=== PATIENT | female | born 2000 | race Caucasian/White ===

== ENCOUNTER → 2020-02-18 | Outpatient (CLI) | payer OTHER ==
--- NOTE | 2020-02-18 20:07 | XCELERA REPORT ---
[address] [address] Transthoracic Echocardiogram Report Name: DARLINE NASH Age: 19 yrs Gender: Female : 2000 Patient Status: Outpatient Patient Location: Study Date: 02/18/2020 02:09 PM History: Family h/o Congenital heart disease Height: 65 in Weight: 147 lb BSA: 1.7 m2 Procedure: A complete two-dimensional transthoracic echocardiogram was performed (2D, M-mode, spectral and color flow Doppler). The study was technically adequate with some images being suboptimal in quality. Study Quality: Technically adequate. Reason For Study: FAMILY HX OF HEART DISEASE Ordering Physician: LIBERTAD GALLEGOS Performed By: Senait Becerril Interpretation Summary Study quality is sub optimal to assess septal defects. Left ventricular systolic function is normal. The Ejection Fraction estimate is 55-60% The right ventricle is normal in size and function. There is a trace amount of mitral regurgitation There is no aortic valve stenosis There is a trace amount of tricuspid regurgitation Doppler findings do not suggest pulmonary hypertension. There is no pericardial effusion. MMode/2D Measurements & Calculations RVDd: 2.1 cm LVIDd: 4.4 cm FS: 32.5 % Ao root diam: 2.4 cm IVSd: 0.70 cm LVIDs: 2.9 cm EDV(Teich): 86.3 ml Ao root area: 4.6 cm2 LVPWd: 0.84 cm ESV(Teich): 33.6 ml EF(Teich): 61.1 % Doppler Measurements & Calculations MV E max bhavana: MV dec slope: Ao V2 max: LV V1 max P.6 cm/sec 712.5 cm/sec2 150.1 cm/sec 7.5 mmHg MV A max bhavana: MV dec time: 0.13 secAo max PG: LV V1 max: 67.0 cm/sec 9.0 mmHg 137.2 cm/sec MV E/A: 1.4 PA V2 max: PI end-d bhavana: 119.5 cm/sec 89.4 cm/sec PA max P.7 mmHg Left Ventricle The left ventricle is normal in size. There is normal left ventricular wall thickness. Left ventricular systolic function is normal. The Ejection Fraction estimate is 55-60%. Doppler measurements suggest normal left ventricular diastolic function. No regional wall motion abnormalities noted. Right Ventricle The right ventricle is normal in size and function. Atria The right atrium is normal. The left atrial size is normal. The interatrial septum is intact with no evidence for an atrial septal defect. There is no Doppler evidence for an interatrial shunt. Mitral Valve The mitral valve is grossly normal. There is a trace amount of mitral regurgitation. Aortic Valve The aortic valve opens well. The aortic valve is trileaflet. The aortic valve is normal in structure and function. There is no aortic valve stenosis. No aortic regurgitation is present. Tricuspid Valve The tricuspid valve is normal in structure and function. There is a trace amount of tricuspid regurgitation. Tricuspid regurgitation jet envelope not well defined to measure RV systolic pressure accurately. Doppler findings do not suggest pulmonary hypertension. Pulmonic Valve The pulmonic valve is not well seen, but is grossly normal. There is a mild amount of pulmonic regurgitation. Great Vessels The aortic root is normal size. The inferior vena cava appeared small and collapsed with respiration (RAP 0-5 mmHg). Effusions There is no pericardial effusion. : LIBERTAD GALLEGOS Anil
== END ==
LOC: SP 14:50
PROVIDERS: ATTEND Internal Medicine
DX: I08.3 Combined rheumatic disorders of mitral, aortic and tricuspid valves (principal); Z82.49 Family history of ischemic heart disease and other diseases of the circulatory system
CPT/HCPCS: 93306

== ENCOUNTER 2020-03-12 10:54 | Inpatient (IN) | payer OTHER ==
[2020-03-12 12:35] LABS: APPEARANCE,URINE SLIGHTLY-CLOUDY; BILIRUBIN,URINE NEGATIVE (NEGATIVE); COLOR,URINE YELLOW; GLUCOSE, URINE NEGATIVE (NEGATIVE); KETONES,URINE NEGATIVE (NEGATIVE); LEUKOCYTE ESTERASE,URINE SMALL (NEGATIVE); NITRITE,URINE NEGATIVE (NEGATIVE); PROTEIN,URINE NEGATIVE (NEGATIVE); URINE SPECIFIC GRAVITY 1.009; UROBILINOGEN,URINE NEGATIVE mg/dL (<2.0)
[2020-03-12 12:54] LABS: URINE AMPHETAMINES SCREEN NEGATIVE; URINE BARBITURATES SCREEN NEGATIVE; URINE BENZODIAZEPINES SCREEN NEGATIVE; URINE COCAINE SCREEN NEGATIVE; URINE MARIJUANA (THC) SCREEN NEGATIVE; URINE METHADONE SCREEN NEGATIVE; URINE PHENCYCLIDINE SCREEN NEGATIVE
[2020-03-12] MEDS ORDERED: OXYTOCIN/0.9 % SODIUM CHLORIDE 30 UNIT/500 ML RTUINJ IV PRN (14:53)
[2020-03-12] MEDS: RINGERS SOLUTION,LACTATED 1,000 ML IV PRN (15:00)
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
[2020-03-12] MEDS ORDERED: LIDOCAINE 1% INJ-PF (10 MG/ML) 30 ML SDV ONE (15:29)
[2020-03-12] MEDS ORDERED: OXYTOCIN 10 UNIT/ML VIAL ONE (15:29)
[2020-03-12] MEDS ORDERED: MISOPROSTOL 0.2 MG TABLET ONE (15:29)
[2020-03-12] MEDS ORDERED: OXYTOCIN/0.9 % SODIUM CHLORIDE 30 UNIT/500 ML RTUINJ ONE (15:30)
[2020-03-12 15:55] LABS: ABSOLUTE BASOPHILS # (AUTO) 0.1 10^3/uL (0.0-0.2); ABSOLUTE EOSINOPHILS # (AUTO) 0.1 10^3/uL (0.0-0.6); ABSOLUTE LYMPHOCYTES (AUTO) 1.5 10^3/uL (0.5-4.7); ABSOLUTE MONOCYTES (AUTO) 0.5 10^3/uL (0.1-1.4); ABSOLUTE NEUT (AUTO) 9.4 10^3/uL (1.7-8.2); BASOPHILS % (AUTO) 0.7 % (0-2); EOSINOPHILS % (AUTO) 0.7 % (0-6); HEMATOCRIT 37.3 % (36.0-47.0); HEMOGLOBIN 12.6 g/dL (12.0-15.5); LYMPHOCYTES % (AUTO) 12.7 % (13-45); MEAN CORPUSCULAR HEMOGLOBIN 29.1 pg (27.0-33.4); MEAN CORPUSCULAR HGB CONC 33.7 g/dL (32.0-36.0); MEAN CORPUSCULAR VOLUME 86 fl (80-97); MONOCYTES % (AUTO) 3.9 % (3-13); PLATELET COUNT 187 10^3/uL (150-450); RED BLOOD COUNT 4.32 10^6/uL (3.72-5.28); TOTAL CELLS COUNTED % (AUTO) 100 %; WHITE BLOOD COUNT 11.5 10^3/uL (4.0-10.5)
[2020-03-12] MEDS ORDERED: ONDANSETRON HCL INJ/PF 4 MG/2 ML SDV ONE (20:48)
[2020-03-12] MEDS ORDERED: ONDANSETRON HCL INJ/PF 4 MG/2 ML SDV IV ONE (20:50)
[2020-03-12] MEDS ORDERED: DINOPROSTONE 10 MG VAGINAL INSERT.SR PV ONE (20:51)
[2020-03-12] MEDS ORDERED: DINOPROSTONE 10 MG VAGINAL INSERT.SR ONE (21:39)
[2020-03-12] MEDS ORDERED: ZOLPIDEM TARTRATE 5 MG TABLET ONE (21:39)
[2020-03-12] MEDS ORDERED: ZOLPIDEM TARTRATE 5 MG TABLET PO ONE (21:43)
[2020-03-13] MEDS ORDERED: DINOPROSTONE 10 MG VAGINAL INSERT.SR ONE (03:06)
[2020-03-13] MEDS ORDERED: FENTANYL CITRATE INJ/PF 100 MCG/2 ML AMPUL ONE (05:08)
[2020-03-13] MEDS ORDERED: FENTANYL CITRATE INJ/PF 100 MCG/2 ML AMPUL IV ONE (05:14)
[2020-03-13] MEDS ORDERED: ONDANSETRON HCL INJ/PF 4 MG/2 ML SDV ONE (07:33)
[2020-03-13] MEDS ORDERED: ONDANSETRON HCL INJ/PF 4 MG/2 ML SDV IV ONE (07:35)
[2020-03-13] MEDS: RINGERS SOLUTION,LACTATED 1,000 ML IV PRN (10:41)
[2020-03-13] MEDS ORDERED: PROMETHAZINE HCL INJ 25 MG/1 ML VIAL IV ONE (10:56)
[2020-03-13] MEDS ORDERED: NALBUPHINE HCL INJ 10 MG/1 ML AMPULE INJ ONE (10:59)
[2020-03-13] MEDS ORDERED: NALBUPHINE HCL INJ 10 MG/1 ML AMPULE ONE (11:18)
[2020-03-13] MEDS ORDERED: PROMETHAZINE HCL INJ 25 MG/1 ML VIAL ONE (11:18)
--- NOTE | 2020-03-13 13:00 | L&D Progress Notes ---
PROGRESS NOTES Datetime Report Generated by CPN: 03/13/2020 13:00 PROGRESS NOTE Impression: Normal Progression of Labor Procedures: Sterile Vag Exam Plan: Continue Present Management; Anticipate Vaginal Delivery Vital Signs : Reviewed; Within Normal Limits Comment: IOL, s/p Cervidil, Pitocin was never started. Pt very uncomfortable w/ contractions, attempting natural labor. VE 8/90/0 w/ BBOW. Position changes encouraged. Anticipate , will AROM prior to delivery. Attending MD is Dr Beal VAGINAL EXAM Dilatation: 3 Effacement: 60 Station: -2 LAST VAGINAL EXAM-NURSING Nursing Exam Dilitation: 8.0 Nursing Exam Effacement: 90 Nursing Exam Station: 0 Nursing Exam Contractions: Nancy monitor applied during this time. MEMBRANES Membranes: Intact FETUS A FHR - Baseline: 135 Monitoring: External US Variability: Moderate 6-25bpm Accelerations: 15X15 Decelerations: None FHR Category: Category I : 39.0 Presentation: Vertex SIGNATURE SIGNATURE: [id number];[id number] Assignment: Sandy Beal MD Signature: with User ID: Dragan : with User ID: Dragan : I personally evaluated and examined the patient in conjunction with the MLP and agree with the assessment, treatment plan and disposition.
[2020-03-13] MEDS ORDERED: PROMETHAZINE HCL 25 MG SUPP.RECT PR PRN (13:49)
[2020-03-13] MEDS ORDERED: DIBUCAINE 1% OINTMENT 28 GM TP PRN (13:49)
[2020-03-13] MEDS ORDERED: GLYCERIN/WITCH HAZEL LEAF 1 EACH MED..WIPE TP PRN (13:49)
[2020-03-13] MEDS ORDERED: PROMETHAZINE HCL INJ 25 MG/1 ML VIAL IV PRN (13:49)
[2020-03-13] MEDS ORDERED: ACETAMINOPHEN 325 MG TABLET PO PRN (13:49)
[2020-03-13] MEDS ORDERED: NA PHOS,M-B/NA PHOS,DI-BA (ADULT) 133 ML ENEMA PR PRN (13:49)
[2020-03-13] MEDS ORDERED: BENZOCAINE/MENTHOL AEROSOL SPRAY 56 ML TOP PRN (13:49)
[2020-03-13] MEDS ORDERED: ZOLPIDEM TARTRATE 5 MG TABLET PO PRN (13:49)
[2020-03-13] MEDS ORDERED: MEASLES,MUMPS&RUBELLA VACC/PF 0.5 ML VIAL SUBCUT PRN (13:49)
[2020-03-13] MEDS ORDERED: PROMETHAZINE HCL 25 MG TABLET PO PRN (13:49)
[2020-03-13] MEDS ORDERED: DIPHENHYDRAMINE HCL 25 MG CAPSULE PO PRN (13:49)
[2020-03-13] MEDS ORDERED: MAGNESIUM HYDROXIDE SUSP 30 ML UDCUP PO PRN (13:49)
[2020-03-13] MEDS ORDERED: DIPH/PERTUSS(ACELL)/TETANUS VAC/PF 0.5 ML SYR (>=10YO) IM PRN (13:49)
[2020-03-13] MEDS ORDERED: OXYTOCIN/0.9 % SODIUM CHLORIDE 30 UNIT/500 ML RTUINJ IV PRN (13:49)
[2020-03-13] MEDS ORDERED: PSEUDOEPHEDRINE HCL 30 MG TABLET PO PRN (13:49)
[2020-03-13] MEDS ORDERED: ACETAMINOPHEN WITH CODEINE #3 TABLET PO PRN ×2 (13:49)
--- NOTE | 2020-03-13 15:37 | Warning Signs in Babies ---
VOD Warning Signs Datetime Report Generated by [facility]: 03/13/2020 15:37 VOD#608 -Warning Signs in Babies: Needs to be viewed. (03/12/2020 11:28:Miguelina Magallanse RN)
[2020-03-13] MEDS ORDERED: IBUPROFEN 800 MG TABLET ONE (16:40)
[2020-03-13] MEDS: IBUPROFEN 800 MG TABLET PO SCH ×2 (16:42→22:33)
[2020-03-13] MEDS: FERROUS SULFATE 325 MG TABLET PO SCH (20:44)
[2020-03-13] MEDS: DOCUSATE SODIUM 100 MG CAPSULE PO SCH (20:44)
[2020-03-13 21:13] LABS: HEMATOCRIT 28.9 % (36.0-47.0); MEAN CORPUSCULAR HGB CONC 33.8 g/dL (32.0-36.0); MEAN CORPUSCULAR VOLUME 86 fl (80-97); PLATELET COUNT 198 10^3/uL (150-450); RED BLOOD COUNT 3.37 10^6/uL (3.72-5.28); RED CELL DISTRIBUTION WIDTH 18.6 % (11.5-14.0); WHITE BLOOD COUNT 19.6 10^3/uL (4.0-10.5)
[2020-03-13 21:17] LABS: HEMOGLOBIN 9.8 g/dL (12.0-15.5)
[2020-03-13] MEDS ORDERED: RINGERS SOLUTION,LACTATED 1,000 ML IV ONE (21:30)
[2020-03-13] MEDS: FAMOTIDINE 20 MG TABLET PO SCH (22:33)
[2020-03-13] MEDS ORDERED: RINGERS SOLUTION,LACTATED 1,000 ML IV PRN (22:35)
[2020-03-14 01:15] LABS: HEMATOCRIT 24.1 % (36.0-47.0); HEMOGLOBIN 8.1 g/dL (12.0-15.5); MEAN CORPUSCULAR HEMOGLOBIN 28.9 pg (27.0-33.4); MEAN CORPUSCULAR HGB CONC 33.4 g/dL (32.0-36.0); MEAN CORPUSCULAR VOLUME 86 fl (80-97); PLATELET COUNT 171 10^3/uL (150-450); RED BLOOD COUNT 2.79 10^6/uL (3.72-5.28); WHITE BLOOD COUNT 14.3 10^3/uL (4.0-10.5)
[2020-03-14] MEDS ORDERED: NORMAL SALINE 250 ML IV PRN ×2 (01:19)
[2020-03-14] MEDS: IBUPROFEN 800 MG TABLET PO SCH ×3 (05:23→21:55)
[2020-03-14] MEDS: SENNOSIDES/DOCUSATE 8.6-50 MG 1 EACH TABLET PO SCH (09:27)
[2020-03-14] MEDS: FERROUS SULFATE 325 MG TABLET PO SCH ×2 (09:28→18:17)
[2020-03-14] MEDS: PRENATAL VITAMIN W DHA CAPSULE PO SCH (09:28)
[2020-03-14] MEDS: DOCUSATE SODIUM 100 MG CAPSULE PO SCH ×2 (09:28→18:17)
[2020-03-14] MEDS: FAMOTIDINE 20 MG TABLET PO SCH ×2 (09:28→21:55)
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
[2020-03-14 14:46] LABS: ABSOLUTE EOSINOPHILS # (AUTO) 0.1 10^3/uL (0.0-0.6); ABSOLUTE LYMPHOCYTES (AUTO) 1.8 10^3/uL (0.5-4.7); ABSOLUTE NEUT (AUTO) 10.2 10^3/uL (1.7-8.2); BASOPHILS % (AUTO) 0.4 % (0-2); LYMPHOCYTES % (AUTO) 13.8 % (13-45); MEAN CORPUSCULAR HGB CONC 34.2 g/dL (32.0-36.0); MEAN CORPUSCULAR VOLUME 88 fl (80-97); MONOCYTES % (AUTO) 7.4 % (3-13); PLATELET COUNT 193 10^3/uL (150-450); RED BLOOD COUNT 3.98 10^6/uL (3.72-5.28); RED CELL DISTRIBUTION WIDTH 17.3 % (11.5-14.0); SEGMENTED NEUTROPHILS % (AUTO) 77.4 % (42-78); TOTAL CELLS COUNTED % (AUTO) 100 %; WHITE BLOOD COUNT 13.1 10^3/uL (4.0-10.5)
[2020-03-15] MEDS: IBUPROFEN 800 MG TABLET PO SCH ×2 (06:28→14:08)
[2020-03-15] MEDS: FERROUS SULFATE 325 MG TABLET PO SCH (09:44)
[2020-03-15] MEDS: DOCUSATE SODIUM 100 MG CAPSULE PO SCH (09:44)
[2020-03-15] MEDS: PRENATAL VITAMIN W DHA CAPSULE PO SCH (09:44)
[2020-03-15] MEDS: FAMOTIDINE 20 MG TABLET PO SCH (09:44)
[2020-03-15] MEDS: SENNOSIDES/DOCUSATE 8.6-50 MG 1 EACH TABLET PO SCH (09:44)
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
[2020-03-15 11:44] VITALS: BP 104/72
--- NOTE | 2020-03-18 12:31 | Delivery Summary ---
Del Sum A-C Datetime Report Generated by CPN: 03/18/2020 12:30 DELIVERY PERSONNEL DELIVERY PERSONNEL: [id number] Delivery Doctor:: Paige Cheng CNM Labor and Delivery Nurse:: Miguelina Magallanes RN Nursery Nurse:: Daysi rPince RN Nursery Nurse:: Della Salazar RN Business Performance Analyst/REINFORCING ROD LAYER: Elana Burr ST Business Performance Analyst/REINFORCING ROD LAYER: Moriah Greenfield, SHELL MACHINE OPERATOR MATERNAL INFORMATION Delivery Anesthesia: None Medications After Delivery: Pitocin 30 Units in 500ml NS/D5W; Other-Please Comment Meds After Delivery Comment: Cytotec 200mcg sublingual Delivery QBL: 550 Maternal Complications: None Provider Comments: of VMI, vigorous and crying, placed on pts abdoman, bulb suctioned. Peds present for delivery. Cord clamped and cut after one minute. Cord blood obtained. Placenta S/C/I, uterine atony until IV Pitocin was able to be started. Uterus responded to fundal massage. 200 mcg SL Cytotec given. With IV Pitocin bolus then given. Placenta to path. QBL 550 ml. Mother and baby left in stable condition doing skin to skin, she plans to breastfeed. Awaiting apgars to be assigned by KRYSTEN SMITH. Attending MD is Dr Beal LABOR SUMMARY EDC: 03/19/2020 00:00 No. Babies in Womb: 1 Attempted: No Labor Anesthesia: None LABOR INFORMATION Reason for Induction: Other Reason for Induction- Other: Cardiac Anomalies Onset of Labor: 03/13/2020 07:21 Complete Dilatation: 03/13/2020 13:27 Cervical Ripening Agents: Cervidil Cervical Ripening Agents: Cervidil Oxytocin: Induction Group B Beta Strep: Negative Antibiotics # of Doses: 0 Name of Antibiotic Given: N/A Steroids Given: None Reason Steroids Not Administered: Not Applicable MEMBRANES Membranes Rupture Method: Spontaneous Rupture of Membranes: 03/13/2020 13:01 Length of Rupture (hr): 1.55 Amniotic Fluid Color: Clear Amniotic Fluid Amount: Small Amniotic Fluid Odor: None STAGES OF LABOR Stage 1 hr: 6 Stage 1 min: 6 Stage 2 hr: 1 Stage 2 min: 7 Stage 3 hr: 0 Stage 3 min: 5 Total Time in Labor hr: 7 Total Time in Labor min: 18 VAGINAL DELIVERY Episiotomy: None Laceration Extension #1: First Degree Laceration Extension #3: N/A Other Laceration: Right Labial Tear, Not Repaired Laceration Repair: No Initial Vag Sponge Count: N/A Final Vag Sponge Count: N/A Initial Vag Sharps Count: N/A Final Vag Sharps Count: N/A Sponge Count Correct: N/A Sharps Count Correct: N/A CSECTION DELIVERY Primary Indication: N/A Secondary Indication: N/A CSection Incidence: N/A Labor: N/A Elective: N/A CSection Incision: N/A BABY A INFORMATION Infant Delivery Date/Time: 03/13/2020 14:34 Method of Delivery: Vaginal Method of Delivery: Vaginal Nurse Controlled Delivery: No Born in Route : No : N/A Forceps: N/A Vacuum Extraction: N/A Shoulder Dystocia : No PRESENTATION/POSITION BABY A Presentation: Cephalic Cephalic Presentation: Vertex Vertex Position: Right Occipital Anterior Breech Presentation: N/A PLACENTA INFORMATION BABY A Placenta Delivery Time : 03/13/2020 14:39 Placenta Method of Delivery: Spontaneous Placenta Method of Delivery: Spontaneous Placenta Status: Delivered SCORES BABY A Heart Rate 1 min: >100 bpm Resp Effort 1 min: Good Cry Reflex Irritability 1 min: Cough or Sneeze or Pulls Away Muscle Tone 1 min: Active Motion Color 1 min: Blue/Pale Resuscitation Effort 1 min: Tactile Stimulation SCORE 1 MIN: 8 Heart Rate 5 min: >100 bpm Resp Effort 5 min: Good Cry Reflex Irritability 5 min: Cough or Sneeze or Pulls Away Muscle Tone 5 min: Active Motion Color 5 min: Body [place]ons[place], Extremities Blue SCORE 5 MIN: 9 INFORMATION BABY A Gestational Age at Delivery: 39.1 Gestational Status: Full Term- 39- 40.6 Weeks Infant Outcome : Liveborn Condition : Stable Sex: Male Infant Sex: Male IDENTIFICATION BABY A Infant Verification Date/Time: 03/12/2020 14:46 ID Band Number: [id number] Mother's Name Verified: Yes Infant RN Verifying : JNiebuhr,RN Additional Verifying Personnel: [facility],SHELL MACHINE OPERATOR CORD INFORMATION BABY A No. Cord Vessels: 3 Nuchal Cord : N/A Cord Blood Taken: Yes-For Eval (Mom's Blood Type - or O+) Suction: None ASSESSMENT BABY A Infant Complications: None Physical Findings at Delivery: Within Normal Limits; Molding of the Head Infant Respirations: Appears Normal Skin to Skin: Yes Skin to Skin Time (min): 60 Body And Fender Mechanic/ALS Called : No Care By: Daysi Prince, RN Transferred To: Remains with Mother BABY B INFORMATION : N/A SIGNATURES Assignment: Sandy Beal MD Signature: with User ID: [email or web address] : with User ID: Dragan : I personally evaluated and examined the patient in conjunction with the MLP and agree with the assessment, treatment plan and disposition.
== END 2020-03-15 15:30 | disposition home or self-care (01) | DRG 807 ==
LOC: LC 10:54 → LR 14:56 → 2S 03-13 17:24
PROVIDERS: ADMIT Obstetrics & Gynecology; ATTEND Obstetrics & Gynecology
PROC: 10E0XZZ Delivery of Products of Conception, External Approach (ICD-10-PCS; principal; 2020-03-13)
PROC: 3E033VJ Introduction of Other Hormone into Peripheral Vein, Percutaneous Approach (ICD-10-PCS; 2020-03-13)
PROC: 30233N1 Transfusion of Nonautologous Red Blood Cells into Peripheral Vein, Percutaneous Approach (ICD-10-PCS; 2020-03-14)
DX: O75.89 Other specified complications of labor and delivery (principal); Z37.0 Single live birth; O99.344 Other mental disorders complicating childbirth; F41.8 Other specified anxiety disorders; O99.02 Anemia complicating childbirth; O72.2 Delayed and secondary postpartum hemorrhage; O67.9 Intrapartum hemorrhage, unspecified; Z3A.39 39 weeks gestation of pregnancy
CPT/HCPCS: 36415; 36430; 80307; 81005; 85025; 85027; 86592; 86850; 86900; 86901; 86920; 88307; 94760; J2300; J2405; J2550; J2590; J3010; J3490; J7120; P9016